=== PATIENT | female | born 1995 | race Caucasian/White ===

== ENCOUNTER 2017-10-04 13:47 | Emergency (ER) | payer MEDICAID ==
[~2017-10-04] VITALS: Ht 177.8 cm; Wt 59.0 kg
--- NOTE | 2017-10-04 14:11 | NUR ---
PATIENT WAS SEEN AND EXAMINED BY DR MURCIA IN ROOM 03A. PATIENT A & O X4.
[2017-10-04 14:36] VITALS: BP 112/61
--- NOTE | 2017-10-04 14:36 | NUR ---
Patient discharged to home in stable conditon. Written and verbal after care instructions given. Patient verbalizes understanding of instructions.
== END 2017-10-04 14:37 | disposition home or self-care (01) ==
LOC: ER 13:47
DX: B80 Enterobiasis (principal)
CPT/HCPCS: 99283; A4663